=== PATIENT | female | born 1990 | race Caucasian/White ===

== ENCOUNTER 2017-05-14 10:35 | Emergency (ER) | payer OTHER ==
[2017-05-14] MEDS ORDERED: ONDANSETRON 4 MG TAB.RAPDIS PO ONE (11:05)
--- NOTE | 2017-05-14 11:05 | ER Document Report ---
ED Medical Screen (RME) - General Chief Complaint: Abdominal Pain Stated Complaint: ABDOMINAL PAIN, VAGINAL SPOTTING Time Seen by Provider: 05/14/17 11:01 Notes: RME DISCLOSURE I have seen this patient as part of a Rapid Medical Evaluation and, if applicable, placed any initially appropriate orders. The patient will be seen and fully evaluated, including a full history and physical exam, by a provider ( in Main ED or Fast Track) when a room becomes available. 26-year-old female here with complaints of lower abdominal pain radiating to the left side that started approximately 5 hours ago and has been constant since then. She has not taken anything for the pain. She has not had any dysuria hematuria frequency hesitancy fevers chills vomiting but has had some nausea. Her test was positive at the [facility] but she has not yet had an ultrasound. TRAVEL OUTSIDE OF THE [place] IN LAST 30 DAYS: No - Related Data Allergies/Adverse Reactions: No Known Allergies Allergy (Unverified 05/14/17 10:37) Past Medical History - Social History Frequency of alcohol use: None Drug Abuse: None Renal/ Medical History: Denies: Hx Peritoneal Dialysis Physical Exam - Vital signs Vitals: Temp Pulse Resp BP Pulse Ox 99.1 F 88 16 115/63 95 05/14/17 10:53 05/14/17 10:53 05/14/17 10:53 05/14/17 10:53 05/14/17 10:53 Course - Vital Signs Vital signs: Temp Pulse Resp BP Pulse Ox 99.1 F 88 16 115/63 95 05/14/17 10:53 05/14/17 10:53 05/14/17 10:53 05/14/17 10:53 05/14/17 10:53
[2017-05-14 12:05] LABS: APPEARANCE,URINE CLEAR; BILIRUBIN,URINE NEGATIVE (NEGATIVE); COLOR,URINE YELLOW; GLUCOSE, URINE NEGATIVE (NEGATIVE); KETONES,URINE NEGATIVE (NEGATIVE); LEUKOCYTE ESTERASE,URINE NEGATIVE (NEGATIVE); NITRITE,URINE NEGATIVE (NEGATIVE); PROTEIN,URINE NEGATIVE (NEGATIVE); URINE SPECIFIC GRAVITY 1.018; UROBILINOGEN,URINE NEGATIVE mg/dL (<2.0)
[2017-05-14] MEDS ORDERED: ACETAMINOPHEN 325 MG TABLET PO ONE (12:12)
--- NOTE | 2017-05-14 12:14 | ER Document Report ---
HPI - HPI Onset: This morning Onset/Duration: Persistent Quality of pain: Achy Pain Level: 4 Context: Patient states that she is currently 5 weeks . Patient reports developing pelvic pain that radiates to her back around 6 AM today. Patient does complain of nausea and denies any vomiting or diarrhea. Patient does report some spotting today. Patient denies any urinary symptoms. Associated Symptoms: Nausea, Other - Vaginal spotting. denies: Fever, Vomiting Exacerbated by: Denies Relieved by: Denies Similar symptoms previously: Yes Recently seen / treated by doctor: No - ROS ROS below otherwise negative: Yes Systems Reviewed and Negative: Yes All other systems reviewed and negative - CONSTITUTIONAL Constitutional: DENIES: Fever - GASTROINTESTINAL Gastrointestinal: REPORTS: Abdominal Pain, Nausea - REPRODUCTIVE Reproductive: REPORTS: Abnormal bleeding / discharge - MUSCULOSKELETAL Musculoskeletal: REPORTS: Back Pain - DERM Skin Color: Normal Skin Problems: None Past Medical History - General Information source: Patient - Social History Smoking Status: Never Smoker Frequency of alcohol use: None Drug Abuse: None Occupation: None Lives with: Spouse/Significant other Family History: Reviewed & Not Pertinent Patient has suicidal ideation: No Patient has homicidal ideation: No - Medical History Medical History: Negative Renal/ Medical History: Denies: Hx Peritoneal Dialysis Surgical Hx: Negative Vertical Provider Document - CONSTITUTIONAL Agree With Documented VS: Yes Exam Limitations: No Limitations General Appearance: WD/WN, No Apparent Distress - INFECTION CONTROL TRAVEL OUTSIDE OF THE [place] IN LAST 30 DAYS: No - HEENT HEENT: Atraumatic, Normocephalic - NECK Neck: Normal Inspection, Supple - RESPIRATORY Respiratory: Breath Sounds Normal, No Respiratory Distress O2 Sat by Pulse Oximetry: 95 - CARDIOVASCULAR Cardiovascular: Regular Rate, Regular Rhythm, No Murmur - GI/ABDOMEN Gastrointestinal: Abdomen Soft, Abdomen Tender - Suprapubic - BACK Back: Abnormal Inspection - Lumbar paraspinal tenderness. negative: CVA Tenderness-Right, CVA Tenderness-Left - MUSCULOSKELETAL/EXTREMETIES Musculoskeletal/Extremeties: MARCIO OVALLE - NEURO Level of Consciousness: Awake, Alert, Appropriate Motor/Sensory: No Motor Deficit - DERM Integumentary: Warm, Dry, No Rash Course - Re-evaluation Re-evalutation: 05/14/17 14:[address] Cartwright regarding patient's presentation, diagnostic test results and ultrasound report finding. Recommends having patient have repeat quantitative hCG testing and to follow-up in the office on Wednesday for repeat examination. - Vital Signs Vital signs: Temp Pulse Resp BP Pulse Ox 99.1 F 88 16 115/63 95 05/14/17 10:53 05/14/17 10:53 05/14/17 10:53 05/14/17 10:53 05/14/17 10:53 - Laboratory Result Diagrams: 05/14/17 11:48 Laboratory results interpreted by me: 05/14/17 14:35 Labs- Entire Visit 05/14/17 05/14/17 05/14/17 11:48 11:48 11:48 WBC RBC Hgb Hct MCV MCH MCHC RDW Plt Count Seg Neutrophils % Lymphocytes % Monocytes % Eosinophils % Basophils % Absolute Neutrophils Absolute Lymphocytes Absolute Monocytes Absolute Eosinophils Absolute Basophils Serum HCG, Qual POSITIVE H Beta HCG, Quant Total Beta HCG Urine Color YELLOW Urine Appearance CLEAR Urine pH 6.0 Ur Specific [place] 1.018 Urine Protein NEGATIVE Urine Glucose (UA) NEGATIVE Urine Ketones NEGATIVE Urine Blood NEGATIVE Urine Nitrite NEGATIVE Urine Bilirubin NEGATIVE Urine Urobilinogen NEGATIVE Ur Leukocyte Esterase NEGATIVE Urine WBC (Auto) 1 Urine RBC (Auto) 0 Squamous Epi Cells Auto 2 Urine Mucus (Auto) RARE Urine Ascorbic Acid NEGATIVE Bacteria (Wet Prep) Trichomonas (Wet Prep) Vaginal WBC Vaginal RBC Vaginal Yeast Blood Type B NEGATIVE Antibody Screen NEGATIVE Rhogam Indicated RHOGAM REQUESTED 05/14/17 05/14/17 05/14/17 11:48 11:48 14:05 WBC 7.5 RBC 4.78 Hgb 15.6 H Hct 44.8 MCV 94 MCH 32.7 MCHC 34.9 RDW 12.4 Plt Count 222 Seg Neutrophils % 73.9 Lymphocytes % 16.4 Monocytes % 7.9 Eosinophils % 1.2 Basophils % 0.6 Absolute Neutrophils 5.5 Absolute Lymphocytes 1.2 Absolute Monocytes 0.6 Absolute Eosinophils 0.1 Absolute Basophils 0.0 Serum HCG, Qual Beta HCG, Quant 146.38 H Total Beta HCG POSITIVE Urine Color Urine Appearance Urine pH Ur Specific [place] Urine Protein Urine Glucose (UA) Urine Ketones Urine Blood Urine Nitrite Urine Bilirubin Urine Urobilinogen Ur Leukocyte Esterase Urine WBC (Auto) Urine RBC (Auto) Squamous Epi Cells Auto Urine Mucus (Auto) Urine Ascorbic Acid Bacteria (Wet Prep) 3+ BACTERIA SEEN Trichomonas (Wet Prep) NO TRICHOMONAS SEEN Vaginal WBC 1+ WBCS SEEN Vaginal RBC RARE RBCS SEEN Vaginal Yeast NO YEAST SEEN Blood Type Antibody Screen Rhogam Indicated - Diagnostic Test Radiology reviewed: Reports reviewed Discharge - Discharge Clinical Impression: test positive, Pelvic pain Condition: Stable Disposition: HOME, SELF-CARE Instructions: Ectopic Precaution ([facility]) Additional Instructions: Return immediately for any new or worsening symptoms Followup with your primary care provider, call tomorrow to make a followup appointment Return to laboratory in 2 days to have repeat blood work performed to laboratory Follow-up with the [facility] office on Wednesday for repeat examination. Forms: Follow-Up Laboratory Testing Referrals: VEDA CARTWRIGHT MD [ACTIVE STAFF] - 05/17/17
--- NOTE | 2017-05-14 13:21 | RADIOLOGY REPORT (SQ) ---
EXAM DESCRIPTION: U/S OB TRANSVAGINAL W/O DOP COMPLETED DATE/TIME: 05/14/2017 1:00 pm REASON FOR STUDY: lower abd pain vag spotting; eval ectopic miscarri COMPARISON: None. TECHNIQUE: Transvaginal static and realtime grayscale images acquired of the pelvis. Additional joseph cted spectral and color Doppler images recorded. All images stored on PACs. CG: Not available. LIMITATIONS: None. FINDINGS: No intrauterine gestational sac is present. UTERUS: No masses. No anomalies. Endometrium measures 16 mm. CERVICAL LENGTH: 3.5 cm. Closed. RIGHT ADNEXA: There is a small cystic area with a slightly hyperechoic rim. The overall measurement is 1.9 x 1.6 x 1.8 cm. The ovary measures 3.5 x 2.7 x 2.5 cm. No adnexal free fluid. No adnexal masses. LEFT ADNEXA: Normal ovary with normal vascular flow. The ovary measures 2.1 x 1.5 x 1.7 cm. The No adnexal free fluid. No adnexal masses. FREE FLUID: None. OTHER: No other significant finding. IMPRESSION: There is no intrauterine gestation. There is a small cystic area on the right ovary wit h a slightly hyperechoic rim of uncertain etiology. Is there a positive test? I suppose a n ectopic cannot be excluded in the absence of an intrauterine gestation. Trimester of : First - 0 to 13 weeks. TECHNICAL DOCUMENTATION: JOB ID: [id number] [email or web address]- All Rights Reserved Reading location - IP/workstation name: [email or web address]
[2017-05-14 13:52] LABS: ABSOLUTE EOSINOPHILS # (AUTO) 0.1 10^3/uL (0.0-0.6); ABSOLUTE LYMPHOCYTES (AUTO) 1.2 10^3/uL (0.5-4.7); ABSOLUTE MONOCYTES (AUTO) 0.6 10^3/uL (0.1-1.4); ABSOLUTE NEUT (AUTO) 5.5 10^3/uL (1.7-8.2); BASOPHILS % (AUTO) 0.6 % (0-2); EOSINOPHILS % (AUTO) 1.2 % (0-6); HEMATOCRIT 44.8 % (36.0-47.0); HEMOGLOBIN 15.6 g/dL (12.0-15.5); LYMPHOCYTES % (AUTO) 16.4 % (13-45); MEAN CORPUSCULAR HEMOGLOBIN 32.7 pg (27.0-33.4); MEAN CORPUSCULAR HGB CONC 34.9 g/dL (32.0-36.0); MEAN CORPUSCULAR VOLUME 94 fl (80-97); MONOCYTES % (AUTO) 7.9 % (3-13); PLATELET COUNT 222 10^3/uL (150-450); RED BLOOD COUNT 4.78 10^6/uL (3.72-5.28); RED CELL DISTRIBUTION WIDTH 12.4 % (11.5-14.0); SEGMENTED NEUTROPHILS % (AUTO) 73.9 % (42-78); TOTAL CELLS COUNTED % (AUTO) 100 %; WHITE BLOOD COUNT 7.5 10^3/uL (4.0-10.5)
[2017-05-14 14:30] LABS: BACTERIA (WET MOUNT) 3+ BACTERIA SEEN; RBCS (WET MOUNT) RARE RBCS SEEN; T.VAGINALIS (WET MOUNT) NO TRICHOMONAS SEEN; WBCS (WET MOUNT) 1+ WBCS SEEN; YEAST (WET MOUNT) NO YEAST SEEN
[2017-05-14] MEDS ORDERED: ONDANSETRON 4 MG TAB.RAPDIS ONE (14:50)
[2017-05-14 15:03] VITALS: BP 115/77
[2017-05-14 15:56] LABS: CHLAM PCR NOT DETECTED (NOT DETECT); GON PCR NOT DETECTED (NOT DETECT)
== END 2017-05-14 15:03 | disposition home or self-care (01) ==
LOC: ER 10:35
DX: O26.91 Pregnancy related conditions, unspecified, first trimester (principal); R10.2 Pelvic and perineal pain; R11.0 Nausea; Z3A.01 Less than 8 weeks gestation of pregnancy
CPT/HCPCS: 99284; 96372; 86900; 86901; 36415; 87210; 86850; 84702; 84703; 85025; 81001; 87491; 87591; 76817; J2790; S0119